=== PATIENT | male | born 1990 | race Two or more races ===

== ENCOUNTER 2019-03-15 07:12 | Emergency (ER) | payer OTHER ==
[2019-03-15 07:17] VITALS: BP 143/85; PULSE 89; TEMP 98; BMI 47.2
--- NOTE | 2019-03-15 07:25 | PDOC ---
History of Present Illness - General Chief Complaint: Wound Stated Complaint: LUMPS UNDER ARM Time Seen by Provider: 03/15/19 07:25 History Source: Patient Exam Limitations: No Limitations - History of Present Illness Initial Comments: 29 year old male with no PMH presented to ED for HIV testing and right axillary mass. Pt reported he had a condom break during sexual intercourse 07/2018, had a full STD workup including HIV 08/2018. Pt reported this AM he discovered a mass to his right axilla, prompting him to come to the ED as his symptoms could be due to him having HIV. Pt denied other symptoms. Past History - Past Medical History Allergies/Adverse Reactions: Allergies Allergy/AdvReac Type Severity Reaction Status Date / Time No Known Allergies Allergy Verified 03/15/19 07:15 Home Medications: Ambulatory Orders NK [No Known Home Medication] 03/15/19 HIV: No - Suicide/Smoking/Psychosocial Hx Smoking History: Never smoked Review of Systems - Review of Systems Able to Perform ROS?: Yes Comments:: General: denied fever, chills, generalized weakness. HEENT: denied sore throat, rhinorrhea, ear pain. Cardiovascular: denied chest pain, palpitations, syncope, diaphoresis. Respiratory: denied shortness of breath, cough, sputum production, hemoptysis. Gastrointestinal: denied abdominal pain, nausea, vomiting, diarrhea, constipation, blood in stool. Genitourinary: denied dysuria, increased urinary frequency, hematuria, urinary incontinence, flank pain. Back: denied back pain. Musculoskeletal: denied joint pain, muscle pain, joint swelling. Neurological: denied headache, dizziness, numbness, tingling, weakness. Integumentary: denied rash, laceration, abrasion. Hematologic/Lymphatic: admitted to lymphadenopathy. denied bruising or bleeding. *Physical Exam - Vital Signs Last Vital Signs Temp Pulse Resp BP Pulse Ox 98 F 89 16 143/85 98 03/15/19 07:16 03/15/19 07:16 03/15/19 07:16 03/15/19 07:16 03/15/19 07:16 - Physical Exam Comments: Constitutional: Well-nourished, Well-developed, appearing stated age. HEENT: head is normocephalic, atraumatic. EOMI. PERRLA. no posterior pharyngeal erythema.no tonsillar swelling or exudates bilaterally. uvula midline. no peritonsillar swelling, tenderness or abscess. no jaw tenderness or misalignment. Neck: supple. Full ROM. Cardiovascular: regular heart rhythm. no murmurs. no pericardial friction rub. Respiratory: clear to auscultation bilaterally. no crackles, rhonchi or wheezing. no stridor. Gastrointestinal: soft, nontender. normal bowel sounds. no rebound, guarding, masses. Extremities: peripheral pulses intact. no lower extremity edema. Neurological: CN 2-12 grossly intact. moves all four extremities. Psych: awake, alert, oriented x3. follows commands. answers questions appropriately. Lymphatic: right axillary lymphadenopathy. Skin: no erythema/abscess/cellulitis/laceration/abrasion/tenderness to right axilla. Medical Decision Making - Medical Decision Making 29 year old male with no PMH presented to ED for evaluation of right axillary mass and HIV test. Pt reported last HIV test negative 08/2018. Pt declined other STD testing. Initial Vital Signs Temp Pulse Resp BP Pulse Ox 98 F 89 16 143/85 98 03/15/19 07:16 03/15/19 07:16 03/15/19 07:16 03/15/19 07:16 03/15/19 07:16 Afebrile. No tachycardia. No tachypnea. Mild hypertension. - Pt is anxious No hypoxia on room air. Labs ordered: HIV Imaging ordered: none Medications ordered: none 03/15/19 10:52 Lab reported Rapid HIV tests are low in stock and only exposures will be done rapid. Pt informed and call back placed. Pt discharged. 03/18/19 11:35 Follow up: Laboratory Last Values HIV 1&2 Ag/Ab, 4th Gen Non reactive (Non Reactive) 03/15/19 08:30 *DC/Admit/Observation/Transfer Diagnosis at time of Disposition: Encounter for HIV (human immunodeficiency virus) test, Lymphadenopathy - Discharge Dispostion Disposition: HOME Condition at time of disposition: Stable Decision to Admit order: No - Referrals Referrals: [facility] [place] [Provider Group] - Patient Instructions Printed Discharge Instructions: DI for Lymphadenopathy Additional Instructions: Follow up with your primary care doctor within 3 days. Your care is not complete until you follow up. You will be called in a few days with the results of your blood work. I have provided you with a referral to our clinic system. Call today and make an appointment for evaluation of your axilla discomfort. Return to the Emergency Department for chest pain, shortness of breath, lightheadedness, fever or any other new, worsening or concerning symptoms. - Post Discharge Activity Forms/Work/School Notes: Back to Work, Back to School
--- NOTE | 2019-03-15 08:08 | PDOC ---
Attending Attestation - Resident Resident Name: Sully Ramirez - ED Attending Attestation I have performed the following: I have examined & evaluated the patient, The case was reviewed & discussed with the resident, I agree w/resident's findings & plan, Exceptions are as noted - HPI HPI: 03/15/19 10:58 Reviewed Residents HPI - Physicial Exam PE: 03/15/19 10:58 Reviewed Residents PE - Medical Decision Making 03/15/19 11:00 Well-Appearing No Apparent Distress Presents to the Emergency Department with Small Lump under his Armpit As Well As Requesting HIV Testing Ordered HIV testing. It is a send out lab patient will be called with results Findings, need for follow-up and strict return instructions discussed with patient.
== END 2019-03-15 11:07 | disposition home or self-care (01) ==
LOC: JER 07:12
DX: Z11.4 Encounter for screening for human immunodeficiency virus [HIV] (principal); R59.1 Generalized enlarged lymph nodes
CPT/HCPCS: 36415; 87389; 99281-25